=== PATIENT | male | born 1950 | race Caucasian/White ===

== ENCOUNTER 2020-11-02 12:36 | Emergency (ER) | payer MEDICARE ==
[~2020-11-02] VITALS: Ht 175.3 cm; Wt 90.7 kg
[~2020-11-02 12:36] MED LIST: COLACE100 MG PO; COQ1050 MG PO; FISH OIL 1,001000 M2 PO; LECITHIN1200 MG PO; SELENIUM200 MC3 PO; VITAMIN B-6100 MG PO; VITAMINC500 PO
[2020-11-02 13:06] LABS: URINE BILIRUBIN NEGATIVE (Negative); URINE BLOOD 3+ (Negative); URINE CLARITY CLEAR; URINE COLOR YELLOW; URINE GLUCOSE-RANDOM 3+ (Negative); URINE KETONES NEGATIVE (Negative); URINE LEUKOCYTES-REFLEX TRACE (Negative); URINE NITRITE-REFLEX POSITIVE (Negative); URINE PROTEIN 1+ (Negative); URINE UROBILINOGEN 0.2 E.U./dl (0.2-1.0)
[2020-11-02 13:16] LABS: SQUAMOUS 0-3 Few /LPF (0-3); URINE WBC-REFLEX 6-15 Few /HPF (0-5)
[2020-11-02 13:17] LABS: BACTERIA-REFLEX >30 Many /HPF (None Seen); CASTS None Seen /LPF (None Seen); CRYSTALS None Seen /LPF (None Seen); MUCUS 0-3 Light strn/LPF (None Seen)
[2020-11-02 13:23] LABS: HEMATOCRIT 44.5 % (42.0-52.0); HEMOGLOBIN 14.9 gm/dL (14.0-18.0); MCH 30.9 pg (26.0-34.0); MCHC 33.5 g/dL (28.0-37.0); MCV 92.1 fL (80.0-100.0); MPV 7.5 fl. (7.2-11.1); NUCLEATED RBCS 0 /100WBC; PLATELET COUNT* 259 thou/uL (150-400); RBC 4.84 mil/uL (4.50-6.00); RDW-CV 14.2 % (10.5-14.5)
[2020-11-02 13:35] LABS: ALBUMIN 3.6 g/dL (3.4-5.0); CALCIUM 8.7 mg/dL (8.5-10.1); POTASSIUM 3.8 mmol/L (3.5-5.1); TOTAL BILIRUBIN 0.4 mg/dL (<0.1-1.0); TOTAL PROTEIN 7.4 g/dL (6.4-8.2)
[2020-11-02 13:42] LABS: ABSOLUTE LYMPHOCYTES 0.7 thou/uL (0.8-5.3); ABSOLUTE MONOCYTES 0.7 thou/uL (0.0-1.2); ABSOLUTE NEUTROPHILS 9.7 thou/uL (1.6-8.1); ANISOCYTOSIS 1+; PLATELET ESTIMATE ADEQUATE; POIKILOCYTOSIS 1+
[2020-11-02] MEDS ORDERED: METFORMIN HCL500 M3 PO (13:51)
[2020-11-02] MEDS ORDERED: FLOMAX0.4 MG PO (13:51)
[2020-11-02] MEDS ORDERED: KEFLEX500 M1 PO (13:51)
[2020-11-02 14:02] VITALS: BP 160/91
== END 2020-11-02 14:04 | disposition left against medical advice (07) ==
LOC: M.ERS 12:36
PROVIDERS: Nurse Practitioner Family
DX: N39.0 Urinary tract infection, site not specified (principal); E11.9 Type 2 diabetes mellitus without complications; N40.0 Benign prostatic hyperplasia without lower urinary tract symptoms; F17.210 Nicotine dependence, cigarettes, uncomplicated; Z88.0 Allergy status to penicillin

== ENCOUNTER 2020-11-04 11:58 | Emergency (ER) | payer MEDICARE ==
[~2020-11-04] VITALS: Ht 172.7 cm; Wt 83.9 kg
[~2020-11-04 11:58] MED LIST changes: +FLOMAX0.4 MG PO; +KEFLEX500 M1 PO; +METFORMIN HCL500 M3 PO
[2020-11-04 12:36] VITALS: BP 178/78
== END 2020-11-04 12:36 | disposition home or self-care (01) ==
LOC: M.ERS 11:58
DX: T83.098A Other mechanical complication of other urinary catheter, initial encounter (principal); E11.9 Type 2 diabetes mellitus without complications; F17.210 Nicotine dependence, cigarettes, uncomplicated; Z88.0 Allergy status to penicillin; Y84.8 Other medical procedures as the cause of abnormal reaction of the patient, or of later complication, without mention of misadventure at the time of the procedure; Y92.89 Other specified places as the place of occurrence of the external cause

== ENCOUNTER 2021-06-28 07:41 | Emergency (ER) | payer MEDICARE ==
[~2021-06-28] VITALS: Ht 172.7 cm; Wt 79.8 kg
[2021-06-28] MEDS ORDERED: PRESERVISION A1 EAC2 PO (07:55)
[2021-06-28] MEDS ORDERED: FLOMAX0.4 MG PO (07:55)
[2021-06-28] MEDS ORDERED: LISINOPRIL10 MG PO (07:55)
[2021-06-28] MEDS ORDERED: COQ1050 MG PO (07:55)
[2021-06-28] MEDS ORDERED: LIPITOR 20 MG T20 M1 PO (07:55)
[2021-06-28 08:59] VITALS: BP 119/68
== END 2021-06-28 09:00 | disposition home or self-care (01) ==
LOC: M.ERS 07:41
DX: R33.9 Retention of urine, unspecified (principal); E11.9 Type 2 diabetes mellitus without complications; F17.210 Nicotine dependence, cigarettes, uncomplicated; Z79.899 Other long term (current) drug therapy; Z88.0 Allergy status to penicillin

== ENCOUNTER 2021-07-02 14:47 | Emergency (ER) | payer MEDICARE ==
[~2021-07-02] VITALS: Ht 170.2 cm; Wt 79.4 kg
[~2021-07-02 14:47] MED LIST changes: +LIPITOR 20 MG T20 M1 PO; +LISINOPRIL10 MG PO; +PRESERVISION A1 EAC2 PO
[2021-07-02 16:13] LABS: URINE BILIRUBIN NEGATIVE (Negative); URINE BLOOD 3+ (Negative); URINE CLARITY CLOUDY; URINE COLOR RED; URINE GLUCOSE-RANDOM 1+ (Negative); URINE KETONES NEGATIVE (Negative); URINE LEUKOCYTES-REFLEX TRACE (Negative); URINE PROTEIN 3+ (Negative); URINE SPECIFIC GRAVITY >= 1.030 (1.005-1.030)
[2021-07-02 16:14] LABS: BACTERIA-REFLEX >30 Many /HPF (None Seen); CASTS None Seen /LPF (None Seen); SQUAMOUS 4-10 Moderate /LPF (0-3); URINE NITRITE-REFLEX POSITIVE (Negative); URINE RBC >20 Many /HPF (0-2); URINE WBC-REFLEX 6-15 Few /HPF (0-5)
[2021-07-02 16:15] LABS: CRYSTALS None Seen /LPF (None Seen)
[2021-07-02] MEDS ORDERED: LEVOFLOXACIN500 MG PO (16:27)
[2021-07-02] MEDS ORDERED: LIDOCAINE 2%2 %/5 GM TOP (16:27)
[2021-07-02 16:30] VITALS: BP 145/70
[2021-07-03] MEDS ORDERED: LIDOCAINE VISC100 ML TOP (10:15)
== END 2021-07-02 16:33 | disposition home or self-care (01) ==
LOC: M.ERS 14:47
PROVIDERS: Physician Assistant
DX: R33.9 Retention of urine, unspecified (principal); N40.0 Benign prostatic hyperplasia without lower urinary tract symptoms; N39.0 Urinary tract infection, site not specified; E11.9 Type 2 diabetes mellitus without complications; F17.210 Nicotine dependence, cigarettes, uncomplicated; Z79.899 Other long term (current) drug therapy; Z88.0 Allergy status to penicillin

== ENCOUNTER 2021-07-03 07:35 | Emergency (ER) | payer MEDICARE ==
[~2021-07-03] VITALS: Ht 170.2 cm; Wt 79.8 kg
[~2021-07-03 07:35] MED LIST changes: +LEVOFLOXACIN500 MG PO; +LIDOCAINE 2%2 %/5 GM TOP
[2021-07-03 08:14] VITALS: BP 145/74
[2021-07-03] MEDS ORDERED: LIDOCAINE VISC100 ML TOP (10:15)
== END 2021-07-03 10:26 | disposition home or self-care (01) ==
LOC: M.ERS 07:35
DX: Z46.6 Encounter for fitting and adjustment of urinary device (principal); E11.9 Type 2 diabetes mellitus without complications; F17.210 Nicotine dependence, cigarettes, uncomplicated; Z79.899 Other long term (current) drug therapy; Z88.0 Allergy status to penicillin

== ENCOUNTER 2021-07-13 08:49 | Emergency (ER) | payer MEDICARE ==
[~2021-07-13] VITALS: Ht 170.2 cm; Wt 79.8 kg
[~2021-07-13 08:49] MED LIST changes: +LIDOCAINE VISC100 ML TOP
[2021-07-13 11:51] LABS: URINE BILIRUBIN NEGATIVE (Negative); URINE BLOOD 3+ (Negative); URINE CLARITY CLEAR; URINE COLOR YELLOW; URINE GLUCOSE-RANDOM 3+ (Negative); URINE KETONES 1+ (Negative); URINE LEUKOCYTES-REFLEX NEGATIVE (Negative); URINE NITRITE-REFLEX NEGATIVE (Negative); URINE PROTEIN 1+ (Negative); URINE SPECIFIC GRAVITY 1.015 (1.005-1.030); URINE UROBILINOGEN 0.2 E.U./dl (0.2-1.0)
[2021-07-13 12:00] VITALS: BP 136/78
[2021-07-13 12:01] LABS: SQUAMOUS NONE SEEN /LPF (0-3); URINE RBC >20 Many /HPF (0-2); URINE WBC-REFLEX 0-5 Rare /HPF (0-5)
[2021-07-13 12:02] LABS: BACTERIA-REFLEX None Seen /HPF (None Seen); CASTS None Seen /LPF (None Seen); CRYSTALS None Seen /LPF (None Seen); MUCUS None Seen strn/LPF (None Seen); RBC CASTS 0-3 /LPF
== END 2021-07-13 12:01 | disposition home or self-care (01) ==
LOC: M.ERS 08:49
PROVIDERS: Emergency Medicine Emergency Medical Services
DX: R33.9 Retention of urine, unspecified (principal); Z46.6 Encounter for fitting and adjustment of urinary device; E11.9 Type 2 diabetes mellitus without complications; F17.210 Nicotine dependence, cigarettes, uncomplicated; Z79.899 Other long term (current) drug therapy; Z79.2 Long term (current) use of antibiotics; Z88.0 Allergy status to penicillin

== ENCOUNTER 2021-07-14 02:04 | Emergency (ER) | payer MEDICARE ==
[~2021-07-14] VITALS: Ht 170.2 cm; Wt 79.8 kg
[2021-07-14 02:31] LABS: URINE BILIRUBIN NEGATIVE (Negative); URINE BLOOD 3+ (Negative); URINE CLARITY CLEAR; URINE COLOR YELLOW; URINE GLUCOSE-RANDOM 3+ (Negative); URINE KETONES 1+ (Negative); URINE LEUKOCYTES-REFLEX NEGATIVE (Negative); URINE NITRITE-REFLEX NEGATIVE (Negative); URINE PROTEIN 1+ (Negative); URINE SPECIFIC GRAVITY 1.015 (1.005-1.030); URINE UROBILINOGEN 0.2 E.U./dl (0.2-1.0)
[2021-07-14 04:03] LABS: BACTERIA-REFLEX None Seen /HPF (None Seen); CASTS None Seen /LPF (None Seen); CRYSTALS None Seen /LPF (None Seen); MUCUS 0-3 Light strn/LPF (None Seen); SQUAMOUS NONE SEEN /LPF (0-3); URINE RBC >20 Many /HPF (0-2); URINE WBC-REFLEX None Seen /HPF (0-5)
[2021-07-14 04:53] VITALS: BP 160/80
== END 2021-07-14 04:54 | disposition home or self-care (01) ==
LOC: M.ERS 02:04
PROVIDERS: Emergency Medicine
DX: R33.9 Retention of urine, unspecified (principal); E11.9 Type 2 diabetes mellitus without complications; F17.210 Nicotine dependence, cigarettes, uncomplicated; Z79.899 Other long term (current) drug therapy; Z88.0 Allergy status to penicillin

== ENCOUNTER 2021-07-27 22:24 | Emergency (ER) | payer MEDICARE ==
[~2021-07-27] VITALS: Ht 167.6 cm; Wt 79.8 kg
[2021-07-27] MEDS ORDERED: PROSCAR 5MG TABL5 MG PO (22:38)
[2021-07-28 00:06] LABS: URINE BILIRUBIN NEGATIVE (Negative); URINE BLOOD 2+ (Negative); URINE CLARITY SL CLOUDY; URINE COLOR YELLOW; URINE GLUCOSE-RANDOM 2+ (Negative); URINE KETONES NEGATIVE (Negative); URINE LEUKOCYTES-REFLEX NEGATIVE (Negative); URINE NITRITE-REFLEX POSITIVE (Negative); URINE PROTEIN TRACE (Negative); URINE UROBILINOGEN 0.2 E.U./dl (0.2-1.0)
[2021-07-28 00:07] LABS: CREATININE 0.8 mg/dL (0.6-1.3); POTASSIUM 3.7 mmol/L (3.5-5.1)
[2021-07-28] MEDS ORDERED: CIPRO500 M1 PO (00:55)
[2021-07-28 01:01] LABS: CASTS None Seen /LPF (None Seen); SQUAMOUS NONE SEEN /LPF (0-3); URINE RBC 3-10 Few /HPF (0-2); URINE WBC-REFLEX >25 Many /HPF (0-5)
[2021-07-28 01:03] LABS: CRYSTALS None Seen /LPF (None Seen); RENAL EPITHELIAL CELLS 0-3 Few /LPF (None Seen)
[2021-07-28 01:06] VITALS: BP 139/72
== END 2021-07-28 01:07 | disposition home or self-care (01) ==
LOC: M.ERS 22:24
PROVIDERS: Emergency Medicine Emergency Medical Services
DX: R33.9 Retention of urine, unspecified (principal); N39.0 Urinary tract infection, site not specified; E11.9 Type 2 diabetes mellitus without complications; F17.210 Nicotine dependence, cigarettes, uncomplicated; Z79.899 Other long term (current) drug therapy; Z88.0 Allergy status to penicillin